=== PATIENT | female | born 1995 | race Caucasian/White ===

== ENCOUNTER 2019-08-10 18:02 | Emergency (ER) | payer MEDICAID, OTHER ==
[~2019-08-10] VITALS: Ht 165.1 cm; Wt 80.0 kg
[2019-08-10] MEDS ORDERED: diphenhydrAMINE 50 mg/ml inj IV ONE (19:10)
[2019-08-10] MEDS ORDERED: normal saline 1000ML IV soln IVB ONE (19:10)
[2019-08-10] MEDS ORDERED: metoclopramide 5 mg/ml inj IV ONE (19:10)
[2019-08-10 19:15] LABS: URINE HCG POSITIVE (NEG)
[2019-08-10] MEDS ORDERED: acetaminophen 1,000mg/100ml IV 100 ML IV ONE (19:15)
[2019-08-10 19:19] LABS: CLARITY,URINE CLEAR (Clear); COLOR,URINE YELLOW (Yellow); GLUCOSE, URINE NEGATIVE (Neg); KETONES,URINE 15 mg/dl (Neg); LEUKOCYTE ESTERASE ,URINE NEGATIVE (Neg); NITRITES, URINE NEGATIVE (Neg); OCCULT BLOOD,URINE TRACE-INTACT (Neg); PH,URINE 5.5 (4.8-8.0); PROTEIN,URINE NEGATIVE (Neg); UROBILINOGEN,URINE 0.2 E.U/dL (0.2-1.0)
[2019-08-10 19:22] LABS: UA COLLECTION TYPE CLN CATCH MIDSTREAM
[2019-08-10 19:25] LABS: BACTERIA,URINE 1+ /HPF (Neg); MUCUS STRANDS MODERATE /LPF (Neg); RBC,URINE 0-2 /HPF (0-2); SQUAMOUS EPITHELIAL CELL,UR MODERATE /LPF (FEW); WBC,URINE 0-4 /HPF (0-4)
--- NOTE | 2019-08-10 19:50 | NUR ---
Patient resting comfortably on family veronica at the bedside. Snacks and blankets brought to patient.
--- NOTE | 2019-08-10 19:59 | NUR ---
Fluids and Acetoaminophen finished patient reports pain 0/10 now.
[2019-08-10] MEDS ORDERED: acetaminophen 1,000mg/100ml IV 100 ML IV SCH (20:00)
[2019-08-10 20:16] VITALS: BP 102/53
== END 2019-08-10 20:18 | disposition home or self-care (01) ==
LOC: ER 18:03
DX: O99.512 Diseases of the respiratory system complicating pregnancy, second trimester (principal); O99.352 Diseases of the nervous system complicating pregnancy, second trimester; O21.9 Vomiting of pregnancy, unspecified; J02.9 Acute pharyngitis, unspecified; J06.9 Acute upper respiratory infection, unspecified; G43.909 Migraine, unspecified, not intractable, without status migrainosus; Z3A.14 14 weeks gestation of pregnancy
CPT/HCPCS: 81001; 81025; 96361; 96374; 96375; 99283; J0131; J1200; J2765; J7030